=== PATIENT | male | born 1980 | race African-American/Black ===

== ENCOUNTER 2016-05-06 18:32 | Emergency (ER) | payer SELFPAY ==
[2016-05-06] MEDS ORDERED: AMOXICILLIN 500 MG CAP As Ordered ONE (19:37)
--- NOTE | 2016-05-06 19:44 | EDDOCDS ---
Nurse's Notes [facility] Name: Tito Sun Age: 35 yrs Sex: Male : 1980 Arrival Date: 05/06/2016 Time: 18:32 Bed TR8 Private MD: Unknown, Family Dr Diagnosis: Otitis media, unspecified, left ear;Nasal polyp-LEFT Presentation: 05/06 18:40 Presenting complaint: Patient states: L ear pain since this morning. nasal congestion rs3 on and off for 4 months. Adult Sepsis Screening: The patient does not have new or worsening altered mentation. Patient's respiratory rate is less than 22. Systolic blood pressure is less than or equal to 100 (1 point). Patient has a qSOFA score of 0- Negative Sepsis Screen. Suicide/Homicide risk assessment- the patient denies having any suicidal and/or homicidal ideations and does not present with any other emotional, behavioral or mental health complaints. Status: Patient is not a student services vice president or dependent. Transition of care: patient was not received from another setting of care. 18:40 Acuity: CHEKO Level 4 rs3 18:40 Method Of Arrival: Walkin/Carried/Asstd rs3 Triage Assessment: 18:43 General: Appears in no apparent distress. Pain: Location: left ear. HIV screening NA rs3 for this visit Offered previously. EENT: Reports pain Pain is 3 out of 10 on a pain scale. Historical: - Allergies: no known allergies; - Home Meds: 1. none - PMHx: Asthma; - PSHx: wrist, right; nasal polyp removal; - Social history: Smoking status: Cigars No barriers to communication noted, The patient speaks fluent Estonian. - Family history: Not pertinent. - : The pt / caregiver states he / she is not on anticoagulants. Home medication list is obtained from the patient. - Exposure Risk Screening:: None identified. Screenin:41 Screening information is obtained from the patient. Fall risk: No risks identified. rs3 Assistance ADL's: requires no assistance with activities of daily living. Abuse/DV Screen: The patient / caregiver reports he/she is: not in a situation that causes fear, pain or injury. Nutritional screening: No deficits noted. Advance Directives: Currently, there is no health care proxy. There is no active DNR order. home support is adequate. Assessment: 19:41 General: Appears in no apparent distress, Behavior is appropriate for age, cooperative. rs3 Pain: Complains of pain in left ear. Awake, alert, oriented. Skin warm and dry. Moves all extremities. Bilateral breath sounds clear. Respirations unlabored. Abdomen soft, non-tender. No apparent distress. The patient / caregiver is instructed regarding the plan of care and ED course. Physical assessment to be completed by PA/EDMD. Vital Signs: 18:34 BP 147 / 83; Pulse 92; Resp 18; Temp 98.1(O); Pulse Ox 99% on R/A; Weight 102.06 kg elp (R); Height 6 ft. 1 in. (185.42 cm) (R); 18:34 Body Mass Index 29.68 (102.06 kg, 185.42 cm) elp Vitals: 18:34 Log In Time: May 06, 2016 at 18:32. elp ED Course: 18:33 Patient visited by Callie Peguero PCA. elp 18:33 Unknown, Family Dr is Private Physician. elp 18:33 Patient moved to Waiting elp 18:35 Patient moved to Pre RCE elp 18:42 Triage Initiated rs3 19:06 Patient moved to Triage 1 jp4 19:09 [facility]ue[facility]C [facility] ck7 19:09 Clyde Vazquez DO is Attending Physician. ck7 19:09 Patient visited by Rickie Villauneva RPA-C. ck7 19:40 Patient moved to TR8 rs3 19:42 No IV's were initiated during this patient's visit. No procedures done that require rs3 assistance. 19:43 Patient has correct armband on for positive identification. rs3 Administered Medications: 19:41 Drug: Amoxicillin 500 mg [amoxicillin 500 mg capsule (1 caps)] Route: PO; rs3 Order Results: There are currently no results for this order. Outcome: 19:29 Discharge ordered by Provider. ck7 19:42 The following High Risk Discharge criteria are identified: None. Discharged to home rs3 ambulatory. Condition: stable. Discharge instructions given to patient, Instructed on discharge instructions, follow up and referral plans. medication usage, Demonstrated understanding of instructions, medications, Pt was receptive of discharge instructions/ teaching. Prescriptions given X 1. No special radiology studies were completed. 19:42 Discharge Assessment: patient administered narcotics - no. The following High Risk rs3 Discharge criteria are identified: None. Property :Personal belongings accompany Pt. 19:43 Patient left the ED. rs3 Signatures: Cammie ChangRN RN rs3 Rickie Villanueva, RPA-C RPA-Cck7 Patchen, Callie, CRYSTAL SLICER CRYSTAL SLICER elp Pigbone, Cruz jp4 Corrections: (The following items were deleted from the chart) 18:43 18:43 EENT: Reports pain Pain is 553 out of 10 on a pain scale. rs3 rs3 MTDD
--- NOTE | 2016-05-06 19:44 | EDDOCDS ---
Physician Documentation [facility] Name: Tito Sun Age: 35 yrs Sex: Male : 1980 Arrival Date: 05/06/2016 Time: 18:32 Bed TR8 Private MD: Unknown, Family Dr Disposition: 05/06/16 19:29 Discharged to Home/Self Care. Impression: Otitis media, unspecified, left ear, Nasal polyp - LEFT. - Condition is Stable. - Discharge Instructions: Otitis Media, Adult. - Prescriptions for Amoxicillin 500 mg Oral Capsule - take 1 capsule by ORAL route every 8 hours for 10 days; 30 tablet. - Medication Reconciliation, Local Pharmacy Hours, Work Release Form - 2 day form. - Follow up: Private Physician; When: 2 - 3 days; Reason: Recheck today's complaints, Continuance of care. - Problem is new. - Symptoms have improved. - Notes: FOLLOW UP WITH YOUR ENT, RETURN TO THE ER IF THE SYMPTOMS WORSEN OR BECOME CONCERNING Historical: - Allergies: no known allergies; - Home Meds: 1. none - PMHx: Asthma; - PSHx: wrist, right; nasal polyp removal; - Social history: Smoking status: Cigars No barriers to communication noted, The patient speaks fluent Yoruba. - Family history: Not pertinent. - : The pt / caregiver states he / she is not on anticoagulants. Home medication list is obtained from the patient. - Exposure Risk Screening:: None identified. Vital Signs: 05/06 18:34 BP 147 / 83; Pulse 92; Resp 18; Temp 98.1(O); Pulse Ox 99% on R/A; Weight 102.06 kg / elp 225 lbs (R); Height 6 ft. 1 in. (185.42 cm) (R); 18:34 Body Mass Index 29.68 (102.06 kg, 185.42 cm) elp MDM: 19:28 Financial registration complete. ks16 19:28 Amoxicillin 500 mg PO once ordered. ck7 Administered Medications: 19:41 Drug: Amoxicillin 500 mg [amoxicillin 500 mg capsule (1 caps)] Route: PO; rs3 Signatures: Cammie Chang RN RN rs3 Rickie Villanueva, KELSEY-C RPA-Cck7 Sanam Mckeon, Reg Reg ks16 MTDD
--- NOTE | 2016-05-08 20:44 | EDDOCDS ---
Physician Documentation [facility] Name: Tito Sun Age: 35 yrs Sex: Male : 1980 Arrival Date: 05/06/2016 Time: 18:32 Bed TR8 Private MD: Unknown, Family Dr Disposition: 05/06/16 19:29 Discharged to Home/Self Care. Impression: Otitis media, unspecified, left ear, Nasal polyp - LEFT. - Condition is Stable. - Discharge Instructions: Otitis Media, Adult. - Prescriptions for Amoxicillin 500 mg Oral Capsule - take 1 capsule by ORAL route every 8 hours for 10 days; 30 tablet. - Medication Reconciliation, Local Pharmacy Hours, Work Release Form - 2 day form. - Follow up: Private Physician; When: 2 - 3 days; Reason: Recheck today's complaints, Continuance of care. - Problem is new. - Symptoms have improved. - Notes: FOLLOW UP WITH YOUR ENT, RETURN TO THE ER IF THE SYMPTOMS WORSEN OR BECOME CONCERNING Historical: - Allergies: no known allergies; - Home Meds: 1. none - PMHx: Asthma; - PSHx: wrist, right; nasal polyp removal; - Social history: Smoking status: Cigars No barriers to communication noted, The patient speaks fluent Arabic. - Family history: Not pertinent. - : The pt / caregiver states he / she is not on anticoagulants. Home medication list is obtained from the patient. - Exposure Risk Screening:: None identified. Vital Signs: 05/06 18:34 BP 147 / 83; Pulse 92; Resp 18; Temp 98.1(O); Pulse Ox 99% on R/A; Weight 102.06 kg / elp 225 lbs (R); Height 6 ft. 1 in. (185.42 cm) (R); 18:34 Body Mass Index 29.68 (102.06 kg, 185.42 cm) elp MDM: 19:28 Financial registration complete. ks16 19:28 Amoxicillin 500 mg PO once ordered. ck7 05/07 18:38 T-Sheet-- Draft Copy was scanned into [employer] and attached to record. klr Administered Medications: 05/06 19:41 Drug: Amoxicillin 500 mg [amoxicillin 500 mg capsule (1 caps)] Route: PO; rs3 Signatures: Cammie Cahng RN RN rs3 Rickie Villanueva, RPA-C RPA-Cck7 Sanam Mckeon, Reg Reg ks16 Adilia Avendano The chart was reviewed and I authenticate all verbal orders and agree with the evaluation and treatment provided.Attachments: 05/07 18:38 T-Sheet-- Draft Copy klr Chart Complete MTDD
--- NOTE | 2016-05-08 20:44 | EDDOCDS ---
Nurse's Notes [facility] Name: Tito Sun Age: 35 yrs Sex: Male : 1980 Arrival Date: 05/06/2016 Time: 18:32 Bed TR8 Private MD: Unknown, Family Dr Diagnosis: Otitis media, unspecified, left ear;Nasal polyp-LEFT Presentation: 05/06 18:40 Presenting complaint: Patient states: L ear pain since this morning. nasal congestion rs3 on and off for 4 months. Adult Sepsis Screening: The patient does not have new or worsening altered mentation. Patient's respiratory rate is less than 22. Systolic blood pressure is less than or equal to 100 (1 point). Patient has a qSOFA score of 0- Negative Sepsis Screen. Suicide/Homicide risk assessment- the patient denies having any suicidal and/or homicidal ideations and does not present with any other emotional, behavioral or mental health complaints. Status: Patient is not a customer service security officer or dependent. Transition of care: patient was not received from another setting of care. 18:40 Acuity: CHEKO Level 4 rs3 18:40 Method Of Arrival: Walkin/Carried/Asstd rs3 Triage Assessment: 18:43 General: Appears in no apparent distress. Pain: Location: left ear. HIV screening NA rs3 for this visit Offered previously. EENT: Reports pain Pain is 3 out of 10 on a pain scale. Historical: - Allergies: no known allergies; - Home Meds: 1. none - PMHx: Asthma; - PSHx: wrist, right; nasal polyp removal; - Social history: Smoking status: Cigars No barriers to communication noted, The patient speaks fluent Latvian. - Family history: Not pertinent. - : The pt / caregiver states he / she is not on anticoagulants. Home medication list is obtained from the patient. - Exposure Risk Screening:: None identified. Screenin:41 Screening information is obtained from the patient. Fall risk: No risks identified. rs3 Assistance ADL's: requires no assistance with activities of daily living. Abuse/DV Screen: The patient / caregiver reports he/she is: not in a situation that causes fear, pain or injury. Nutritional screening: No deficits noted. Advance Directives: Currently, there is no health care proxy. There is no active DNR order. home support is adequate. Assessment: 19:41 General: Appears in no apparent distress, Behavior is appropriate for age, cooperative. rs3 Pain: Complains of pain in left ear. Awake, alert, oriented. Skin warm and dry. Moves all extremities. Bilateral breath sounds clear. Respirations unlabored. Abdomen soft, non-tender. No apparent distress. The patient / caregiver is instructed regarding the plan of care and ED course. Physical assessment to be completed by PA/EDMD. Vital Signs: 18:34 BP 147 / 83; Pulse 92; Resp 18; Temp 98.1(O); Pulse Ox 99% on R/A; Weight 102.06 kg elp (R); Height 6 ft. 1 in. (185.42 cm) (R); 18:34 Body Mass Index 29.68 (102.06 kg, 185.42 cm) elp Vitals: 18:34 Log In Time: May 06, 2016 at 18:32. elp ED Course: 18:33 Patient visited by Callie Peguero PCA. elp 18:33 Unknown, Family Dr is Private Physician. elp 18:33 Patient moved to Waiting elp 18:35 Patient moved to Pre RCE elp 18:42 Triage Initiated rs3 19:06 Patient moved to Triage 1 jp4 19:09 Rick[facility] ck[facility] 19:09 Clyde Vazquez DO is Attending Physician. ck7 19:09 Patient visited by Rickie Villanueva RPA-C. ck7 19:40 Patient moved to TR8 rs3 19:42 No IV's were initiated during this patient's visit. No procedures done that require rs3 assistance. 19:43 Patient has correct armband on for positive identification. rs3 20:11 Patient name changed from Tito\S\\S\Corinne\S\ to Tito\S\ \S\Corinne. EDMS 05/07 18:38 T-Sheet-- Draft Copy was scanned into [employer] and attached to record. klr Administered Medications: 05/06 19:41 Drug: Amoxicillin 500 mg [amoxicillin 500 mg capsule (1 caps)] Route: PO; rs3 Order Results: There are currently no results for this order. Outcome: 19:29 Discharge ordered by Provider. ck7 19:42 The following High Risk Discharge criteria are identified: None. Discharged to home rs3 ambulatory. Condition: stable. Discharge instructions given to patient, Instructed on discharge instructions, follow up and referral plans. medication usage, Demonstrated understanding of instructions, medications, Pt was receptive of discharge instructions/ teaching. Prescriptions given X 1. No special radiology studies were completed. 19:42 Discharge Assessment: patient administered narcotics - no. The following High Risk rs3 Discharge criteria are identified: None. Property :Personal belongings accompany Pt. 19:43 Patient left the ED. rs3 Signatures: Dispatcher [employer] Cammie Marie,RN RN rs3 Rickie Villanueva, RPA-C RPA-Cck7 Callie Peguero, CORPORATE DEVELOPMENT ANALYST CORPORATE DEVELOPMENT ANALYST elp Andrez, Cruz jp4 Adilia Avendano Corrections: (The following items were deleted from the chart) 18:43 18:43 EENT: Reports pain Pain is 553 out of 10 on a pain scale. rs3 rs3 Chart Complete MTDD
--- NOTE | 2016-05-08 20:44 | EDDOCDS ---
Physician Documentation [facility] Name: Tito Sun Age: 35 yrs Sex: Male : 1980 Arrival Date: 05/06/2016 Time: 18:32 Bed TR8 Private MD: Unknown, Family Dr Disposition: 05/06/16 19:29 Discharged to Home/Self Care. Impression: Otitis media, unspecified, left ear, Nasal polyp - LEFT. - Condition is Stable. - Discharge Instructions: Otitis Media, Adult. - Prescriptions for Amoxicillin 500 mg Oral Capsule - take 1 capsule by ORAL route every 8 hours for 10 days; 30 tablet. - Medication Reconciliation, Local Pharmacy Hours, Work Release Form - 2 day form. - Follow up: Private Physician; When: 2 - 3 days; Reason: Recheck today's complaints, Continuance of care. - Problem is new. - Symptoms have improved. - Notes: FOLLOW UP WITH YOUR ENT, RETURN TO THE ER IF THE SYMPTOMS WORSEN OR BECOME CONCERNING Historical: - Allergies: no known allergies; - Home Meds: 1. none - PMHx: Asthma; - PSHx: wrist, right; nasal polyp removal; - Social history: Smoking status: Cigars No barriers to communication noted, The patient speaks fluent Vietnamese. - Family history: Not pertinent. - : The pt / caregiver states he / she is not on anticoagulants. Home medication list is obtained from the patient. - Exposure Risk Screening:: None identified. Vital Signs: 05/06 18:34 BP 147 / 83; Pulse 92; Resp 18; Temp 98.1(O); Pulse Ox 99% on R/A; Weight 102.06 kg / elp 225 lbs (R); Height 6 ft. 1 in. (185.42 cm) (R); 18:34 Body Mass Index 29.68 (102.06 kg, 185.42 cm) elp MDM: 19:28 Financial registration complete. ks16 19:28 Amoxicillin 500 mg PO once ordered. ck7 05/07 18:38 T-Sheet-- Draft Copy was scanned into [employer] and attached to record. klr Administered Medications: 05/06 19:41 Drug: Amoxicillin 500 mg [amoxicillin 500 mg capsule (1 caps)] Route: PO; rs3 Signatures: Cammie Chang RN RN rs3 Rickie Villanueva, RPA-C RPA-Cck7 Sanam Mckeon, Reg Reg ks16 Adilia Avendano The chart was reviewed and I authenticate all verbal orders and agree with the evaluation and treatment provided.Attachments: 05/07 18:38 T-Sheet-- Draft Copy klr Chart Complete MTDD
== END 2016-05-06 19:43 | disposition home or self-care (01) ==
LOC: M ED 18:32
DX: H66.92 Otitis media, unspecified, left ear (principal); J33.9 Nasal polyp, unspecified; J45.909 Unspecified asthma, uncomplicated; F17.210 Nicotine dependence, cigarettes, uncomplicated

== ENCOUNTER 2016-09-25 17:42 | Emergency (ER) | payer SELFPAY ==
[~2016-09-25] VITALS: Ht 185.4 cm; Wt 99.1 kg
[2016-09-25 17:42] VITALS: BP 164/101
== END 2016-09-25 18:08 | disposition left against medical advice (07) ==
LOC: M ED 17:42
DX: R10.9 Unspecified abdominal pain (principal); Z53.29 Procedure and treatment not carried out because of patient's decision for other reasons